=== PATIENT | female | born 1985 | race Caucasian/White ===

== ENCOUNTER → 2019-11-15 | Emergency (ER) | payer SELFPAY ==
[~2019-11-15] VITALS: Ht 154.9 cm; Wt 68.2 kg
[~2019-11-15] MED LIST: BACITRACIN ZINC OINT UDPKT TOP ONE; KETOROLAC 60MG/2ML VIAL IM ONE
[2019-11-15 21:20] VITALS: BP 130/85
== END ==
LOC: ER 19:46
DX: S01.81XA Laceration without foreign body of other part of head, initial encounter (principal); I10 Essential (primary) hypertension; E78.00 Pure hypercholesterolemia, unspecified; Y04.0XXA Assault by unarmed brawl or fight, initial encounter; Y93.89 Activity, other specified; Y92.89 Other specified places as the place of occurrence of the external cause; Y99.8 Other external cause status
CPT/HCPCS: 81025; 96372; 99283; J1885